=== PATIENT | female | born 1985 | race Caucasian/White ===

== ENCOUNTER 2020-07-07 10:25 | Emergency (ER) | payer SELFPAY ==
[2020-07-07 10:32] VITALS: BP 146/85
--- NOTE | 2020-07-07 11:44 | ER Document Report ---
ED Medical Screen (RME) - General Chief Complaint: Leg Pain Stated Complaint: LEG PAIN Time Seen by Provider: 07/07/20 11:41 Mode of Arrival: Ambulatory Information source: Patient Notes: 34-year-old female presented to ED for pain and large bruise to the right posterior legs it is 8 cm at this time. She states she first noticed it yesterday and has gotten progressively worse. She states she did not hit it she did not injure it she does not smoke she does not use any control pills. I have ordered blood and a venous Doppler and she will be seen by another provider. She states she does have a history of bilateral salpingectomy, ear reconstruction, ear tubes, tonsils and adenoids, D&C. I have greeted and performed a rapid initial assessment of this patient. A comprehensive ED assessment and evaluation of the patient, analysis of test results and completion of medical decision making process will be conducted by an additional ED providers. TRAVEL OUTSIDE OF THE [place] IN LAST 30 DAYS: No - Related Data Allergies/Adverse Reactions: amoxicillin [Amoxicillin] Allergy (Verified 08/12/15 12:04) codeine [Codeine] Allergy (Verified 08/12/15 12:04) Past Medical History Past Surgical History: Reports: Hx Myringotomy - Immunizations Hx Diphtheria, Pertussis, Tetanus Vaccination: Yes Physical Exam - Vital signs Vitals: Temp Pulse Resp BP Pulse Ox 98.3 F 75 16 146/85 H 97 07/07/20 10:28 07/07/20 10:28 07/07/20 10:07/07/20 10:07/07/20 10:28 Course - Vital Signs Vital signs: Temp Pulse Resp BP Pulse Ox 98.3 F 75 16 146/85 H 97 07/07/20 10:28 07/07/20 10:28 07/07/20 10:07/07/20 10:07/07/20 10:28
[2020-07-07 12:10] LABS: ABSOLUTE EOSINOPHILS # (AUTO) 0.3 10^3/uL (0.0-0.6); ABSOLUTE MONOCYTES (AUTO) 0.5 10^3/uL (0.1-1.4); BASOPHILS % (AUTO) 0.5 % (0-2); EOSINOPHILS % (AUTO) 4.1 % (0-6); HEMATOCRIT 39.2 % (36.0-47.0); HEMOGLOBIN 13.3 g/dL (12.0-15.5); LYMPHOCYTES % (AUTO) 25.2 % (13-45); MEAN CORPUSCULAR VOLUME 85 fl (80-97); MONOCYTES % (AUTO) 6.3 % (3-13); PLATELET COUNT 240 10^3/uL (150-450); RED CELL DISTRIBUTION WIDTH 13.5 % (11.5-14.0); SEGMENTED NEUTROPHILS % (AUTO) 63.9 % (42-78); TOTAL CELLS COUNTED % (AUTO) 100 %; WHITE BLOOD COUNT 7.9 10^3/uL (4.0-10.5)
[2020-07-07 12:31] LABS: ALBUMIN 4.4 g/dL (3.5-5.0); ALKALINE PHOSPHATASE 78 U/L (38-126); ANION GAP 8 (5-19); ASPARTATE AMINO TRANSFERASE 29 U/L (14-36); BILIRUBIN,DIRECT 0.1 mg/dL (0.0-0.4); BILIRUBIN,TOTAL 0.4 mg/dL (0.2-1.3); BLOOD UREA NITROGEN 13 mg/dL (7-20); CALCIUM 9.5 mg/dL (8.4-10.2); CARBON DIOXIDE 26 mmol/L (22-30); CHLORIDE 104 mmol/L (98-107); GLUCOSE 95 mg/dL (75-110); POTASSIUM 4.7 mmol/L (3.6-5.0); TOTAL PROTEIN 7.6 g/dL (6.3-8.2)
[2020-07-07 12:37] LABS: INTERNATIONAL RATION (INR) 1.02; PROTHROMBIN TIME 13.6 SEC (11.4-15.4)
[2020-07-07 12:38] LABS: PARTIAL THROMBOPLASTIN TIME 36.8 SEC (23.5-35.8)
--- NOTE | 2020-07-07 15:17 | RADIOLOGY REPORT (SQ) ---
EXAM DESCRIPTION: VENOUS UNILATERAL LOWER IMAGES COMPLETED DATE/TIME: 07/07/2020 3:00 pm REASON FOR STUDY: Right leg pain swelling large ecchymotic area no i COMPARISON: None. TECHNIQUE: Dynamic and static coughlin scale and color images acquired of the right leg venous system. S elected spectral images acquired with additional compression and augmentation maneuvers. The contrala teral common femoral vein and saphenofemoral junction were also imaged. Images stored on PACS. LIMITATIONS: None. FINDINGS: COMMON FEMORAL: Normal phasicity, compression and augmentation. No visualized echogenic ma terial on coughlin scale. No defects on color images. FEMORAL: Normal compression and augmentation. No visualized echogenic material on coughlin scale. No defe cts on color images. POPLITEAL: Normal compression, augmentation. No visualized echogenic material on coughlin scale. No defec ts on color images. CALF VESSELS: Normal compression, augmentation. No visualized echogenic material on coughlin scale. No de fects on color images. GSV and SSV: Normal compression, augmentation. No visualized echogenic material on coughlin scale. No def ects on color images. ANY DEEP VENOUS INSUFFICIENCY: Not evaluated. ANY EVIDENCE OF POPLITEAL CYST: No. OTHER: No other significant finding. CONTRALATERAL COMMON FEMORAL VEIN AND SAPHENOFEMORAL JUNCTION: Normal phasicity, compression and augmentation. No visualized echogenic material on coughlin scale. No de fects on color images. IMPRESSION: NO EVIDENCE DVT OR SVT IN THE RIGHT LEG. TECHNICAL DOCUMENTATION: JOB ID: [id number] [employer]- All Rights Reserved Reading location - IP/workstation name: [email or web address]
== END 2020-07-07 18:22 | disposition left against medical advice (07) ==
LOC: ER 10:25
DX: M79.604 Pain in right leg (principal); Z88.0 Allergy status to penicillin; Z88.6 Allergy status to analgesic agent
CPT/HCPCS: 36415; 80053; 85025; 85610; 85730; 93971; 99284